=== PATIENT | male | born 1960 | race Caucasian/White ===

== ENCOUNTER 2016-06-28 10:23 | Emergency (ER) | payer OTHER ==
[2016-06-28 10:36] VITALS: BP 140/81
[2016-06-28] MEDS ORDERED: NORCO-5 PO ONE (10:43)
--- NOTE | 2016-06-28 10:48 | PROVIDER DOCUMENTATION ---
HPI-Work Related Injury <Elizabeth Davis - Last Filed: 06/28/16 10:48> - General Source: patient - History of Present Illness-Work Injury Location of Pain/Injury: reports: upper extremity (left hand) Pain Radiation: reports: no radiation Quality of Pain: reports: other (numbness) Severity: reports: mild Onset/Duration: reports: abrupt, just prior to arrival Timing: reports: still present, constant Modifying Factors: improves with: nothing Associated Symptoms: denies: back/neck pain, chest pain, dizziness, fever/chills , genitourinary problems, nausea, shortness of breath, vomiting Similar Symptoms Previously?: No Recently seen or treated by another doctor?: No <Antonio Simmons - Last Filed: 06/28/16 10:52> - General Chief Complaint: Work Related Injury Stated Complaint: WORK RELATED INJURY Time Seen by Provider: 06/28/16 10:37 Allergies/Adverse Reactions: Patient Allergies Allergy/AdvReac Type Severity Reaction Status Date / Time No Known Allergies Allergy Verified 06/28/16 10:36 Home Medications: Home Medication List Medication Instructions Recorded Confirmed Last Taken Type Home Meds Unobtainable 06/28/16 06/28/16 Unknown History - History of Present Illness-Work Injury Nature of PresentingProblem: patient is a 56 y/o M that presents to the ER after working on light socked and getting shocked by the wire. patient had some numbness to left hand. Denies chest pain, shortness of breath, or burn to hand. patient feels back to normal now. (Antonio Simmons) Review of Systems - Adult - REVIEW OF SYSTEMS - ADULT Constitutional: reports: no symptoms reported Eyes: reports: no symptoms reported Ears, Nose, Mouth & Throat: denies: ear pain, throat pain, throat swelling Cardiovascular: denies: chest pain, palpitations, syncope Respiratory: denies: shortness of breath, wheezing Gastrointestinal: reports: no symptoms reported Genitourinary: reports: no symptoms reported Musculoskeletal: reports: no symptoms reported Integumentary: reports: no symptoms reported Neurological: reports: numbness. denies: dizziness/vertigo, headache/migraines , seizure, syncope Psychiatric: reports: no symptoms reported Endocrine: reports: no symptoms reported Hematologic/Lymphatic: reports: no symptoms reported Allergic/Immunologic: reports: no symptoms reported All Other Systems: Reviewed and Negative <Antonio Simmons - Last Filed: 06/28/16 10:52> Past History - Adult - PAST MEDICAL HISTORY-ADULT Review of Records: reports: Old Records Reviewed, Nursing Assessment Review, Medications Reviewed Other Conditions: reports: psoriasis - PRIOR SURGERIES/PROCEDURES Surgical/Procedure History: reports: reviewed, not pertinent - IMMUNIZATION STATUS Childhood Immunizations: See Nurse Assessment Flu Vaccine: See Nurse Assessment - FAMILY HISTORY Family History: reviewed, not pertinent - SOCIAL HISTORY Smoking: quit greater than 1 year, cigarettes Living Situation: family <Antonio Simmons - Last Filed: 06/28/16 10:52> Physical Exam-Injury Related - Physical Exam-Injury Related Initial Vital Signs Reviewed: Yes General Appearance: alert, no apparent distress Eyes: PERRL/EOMI, pink conjunctivae Head, Ears, Nose, Mouth & Throat: normocephalic/atraumatic, moist mucous membranes, normal ENT inspection Neck: non-tender, full range of motion, normal inspection Respiratory: lungs clear, normal breath sounds, no respiratory distress, no accessory muscle use Cardiovascular: normal peripheral pulses, regular rate, rhythm, no edema, no murmur Abdominal Exam: normal bowel sounds, non tender, soft, no organomegaly, no pulsatile mass Back Exam: no CVA tenderness, no vertebral tenderness Extremity: normal range of motion, non-tender, normal inspection, no pedal edema , no calf tenderness, normal capillary refill, pelvis stable. negative: deformity, erythema Integumentary: normal color, warm/dry. negative: erythema, ashen, blistered Neurologic: design technician II-XII nml as tested, no motor/sensory deficits. negative: focal weakness, motor weakness, sensory deficit Psych/Mental Status: normal mood/affect, normal thought content, normal thought process, oriented x 3 - Gl[place]ow Coma Score Best Eye Response ([place]): (4) open spontaneously Best Verbal Response ([place]): (5) oriented Best Motor Response ([place]): (6) obeys commands [place] Total: 15 <Antonio Simmons - Last Filed: 06/28/16 10:52> Progress <Elizabeth Davis - Last Filed: 06/28/16 10:48> <Antonio Simmons - Last Filed: 06/28/16 10:52> - PLAN OF CARE/RESULTS Progress/Plan/Lab Results: Vital Signs Temp Pulse Resp BP Pulse Ox 06/28/16 10:32 98 F 61 18 140/81 99 No Known Allergies Allergy (Verified 06/28/16 10:36) Home Meds Unobtainable 06/28/16 Orders Category Date Time Status Hydrocodone/APAP 5 mg/325 mg [[place]-5] Med 06/28/16 10:43 Discontinued 1 each PO NOW ONE case discussed with , agrees with plan of care. pt will be d/c home f/u with pcp, pt was clinically and neurologically stable. (Antonio Simmons) Departure - Departure Time of Disposition Order: 10:49 Certified Medical Emergency: Emergent <Elizabeth Davis - Last Filed: 06/28/16 10:48> <Antonio Simmons - Last Filed: 06/28/16 10:52> - Departure DIAGNOSIS: Electrical shock of hand Qualifiers: Encounter type: initial encounter Qualified Code(s): T75.4XXA - Electrocution, initial encounter Disposition: HOME 01 Condition: Stable Additional Instructions: Follow up with [facility] [place] ED Follow Up Instructions: You have been treated by a care provider in the Emergency Department. These instructions are being provided to you so you can have an understanding of how to care for yourself upon discharge. Upon discharge from the Emergency Department, you are responsible for making arrangements for follow-up care by a physician of your choice. Take all prescribed medications as directed. Return to the Emergency Department immediately for any new or worsening symptoms. You may call the Physician Referral phone number at [phone] to obtain a list of Physicians who are taking new patients. Referrals: None,PCP [Primary Care Provider] - Attestation - Scribe Verification/Attestation Scribe:: Antonio Simmons Acting as Scribe for:: Elizabeth Davis Scribe documention review:: This chart was documented by a scribe and accurately reflects the service the provider performed and the decisions made by the provider. - Physician/ JAQUELINE Attestation Patient care was provided by Advanced Practice Provider:: Yes Advanced Practice Provider:: Elizabeth Davis Advanced Practice Provider documentation review:: The Mid-level provider documentation, treatment plan and medical decision making was reviewed by the physician who agrees with all treatment and medical decision making by the MLP. <Antonio Simmons - Last Filed: 06/28/16 10:52> Physician Attestation - Physician Attestation I, the provider, attest to the following statement:: Elizabeth Davis Physician documentation Attestation:: This documentation recorded by the scribe accurately reflects the service I personally performed and the decisions made by me. <Antonio Simmons - Last Filed: 06/28/16 10:52>
== END 2016-06-28 11:03 | disposition home or self-care (01) ==
LOC: P.ED 10:23
DX: T75.4XXA Electrocution, initial encounter (principal); R20.0 Anesthesia of skin; L40.9 Psoriasis, unspecified; Z87.891 Personal history of nicotine dependence; W86.1XXA Exposure to industrial wiring, appliances and electrical machinery, initial encounter
CPT/HCPCS: 99282